=== PATIENT | female | born 2000 | race Caucasian/White ===

== ENCOUNTER 2024-05-13 09:21 | Emergency (ER) | payer BC ==
[2024-05-13 09:41] VITALS: TEMP 97.8
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
[2024-05-13 10:31] LABS: Absolute Neutrophil Ct (ANC) 4.99 x10^3/uL (1.56-6.13); BASOPHIL % 0.3 % (0.1-1.2); Basophil (Absolute #) 0.02 x10^3/uL (0.01-0.08); Eosinophil % 2.2 % (0.7-5.8); Eosinophil (Absolute #) 0.16 x10^3/uL (0.04-0.36); Hematocrit 35.7 % (34.1-44.9); Hemoglobin 11.7 g/dL (11.2-15.7); IMMATURE GRAN # 0.04 x10^3u/L (0.001-0.031); IMMATURE GRAN % 0.5 % (0.001-0.429); Lymphocyte (Absolute #) 1.76 x10^3/uL (1.18-3.74); Lymphocytes % 23.7 % (19.3-51.7); Mean Cell Volume 91.5 fL (79.4-94.8); Mean Corpuscular Hgb Concent. 32.8 g/dL (32.2-35.5); Mean Platelet Volume 9.6 fL (9.4-12.3); Monocyte (Absolute #) 0.46 x10^3/uL (0.24-0.86); Monocytes % 6.2 % (4.7-12.5); Neutrophil % 67.1 % (34.0-71.1); Platelet Count 396 x10^3/uL (182-369); Red Cell Distribution Width 12.4 % (11.7-14.4); White Blood Count 7.4 x10^3/uL (3.98-10.04)
[2024-05-13 10:36] LABS: Appearance Cloudy (Clear); Bacteria Rare /HPF (None Seen); Bilirubin Negative (Negative); Blood Negative (Negative); Epithelial Cells Few /HPF (None Seen); Glucose, Urine Negative (Negative); Hyaline Casts NONE SEEN /LPF (0-2); Ketones Negative (Negative); Leukocyte Esterase Trace (Negative); Nitrite Negative (Negative); Ph 7.5 (4.6-8.0); Protein,Urine Dip Negative (Negative); Specific Gravity <=1.005 (1.005-1.030); Urobilinogen 0.2 mg/dL (0.2)
[2024-05-13 10:40] LABS: HCG SERUM TEST NEGATIVE (NEGATIVE)
[2024-05-13 10:42] LABS: ALBUMIN 4.3 g/dL (3.5-5.0); ANION GAP 15.1 MEQ/L (5-15); BILIRUBIN,TOTAL 0.5 mg/dL (0.2-1.3); Creatinine 1 0.66 mg/dL (0.52-1.04); EST GLOMERULAR FILTRATION RATE 126.3 ML/MIN; Potassium 3.9 mmol/L (3.5-5.1); Total Protein 7.5 g/dL (6.3-8.2)
[2024-05-13] MEDS ORDERED: ZOFRAN ODT 4 MG ONE (10:50)
[2024-05-13] MEDS ORDERED: NORCO 5/325 MG ONE (10:50)
[2024-05-13] MEDS: NORCO 5/325 MG PO ONE (10:59)
[2024-05-13] MEDS: ZOFRAN ODT 4 MG PO ONE (10:59)
[2024-05-13 11:15] VITALS: O2SAT 96
[2024-05-13] MEDS: Zofran 4 MG/2 ML VIAL IV ONE (11:21)
[2024-05-13] MEDS: MORPHINE SULFATE 4 MG INJ IV ONE (11:21)
[2024-05-13] MEDS: Sodium Chloride 0.9% 1000 ML 1,000 ML IV SCH (11:21)
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
[2024-05-13 12:32] VITALS: BP 96/51; PULSE 77; RESP 14
== END 2024-05-13 12:32 | disposition home or self-care (01) ==
LOC: ED 09:21
DX: S29.011A Strain of muscle and tendon of front wall of thorax, initial encounter (principal); S16.1XXA Strain of muscle, fascia and tendon at neck level, initial encounter; V43.52XA Car driver injured in collision with other type car in traffic accident, initial encounter; R10.9 Unspecified abdominal pain; R51.9 Headache, unspecified; Z79.899 Other long term (current) drug therapy
CPT/HCPCS: 36000; 36415; 71250; 74176; 80053; 81001; 83690; 84484; 84703; 85025; 93005; 99284; Q0162; A9270-GY